=== PATIENT | female | born 1995 | race African-American/Black ===

== ENCOUNTER 2022-12-13 11:40 | Emergency (ER) | payer OTHER ==
[2022-12-13 11:50] VITALS: BMI 43.3
[2022-12-13 14:39] LABS: PH,URINE 6.5 (5.0-8.0); URINE APPEARANCE CLEAR; URINE BILIRUBIN NEGATIVE (NEGATIVE); URINE COLOR YELLOW; URINE GLUCOSE (UA) NEGATIVE (NEGATIVE); URINE KETONE TRACE (NEGATIVE); URINE LEUK ESTERASE NEGATIVE (NEGATIVE); URINE NITRITE NEGATIVE (NEGATIVE); URINE PROTEIN TRACE (NEGATIVE)
[2022-12-13 14:48] VITALS: BP 132/81; PULSE 117; RESP 20; TEMP 98
== END 2022-12-13 14:30 | disposition home or self-care (01) ==
LOC: JER 11:40
DX: O98.512 Other viral diseases complicating pregnancy, second trimester (principal); U07.1 COVID-19; Z3A.22 22 weeks gestation of pregnancy
CPT/HCPCS: 0241U-QW; 76815; 81003; 87086; 99284-25